=== PATIENT | female | born 1980 | race Caucasian/White ===

== ENCOUNTER 2017-01-10 02:10 | Emergency (ER) | payer OTHER ==
[~2017-01-10] VITALS: Ht 157.5 cm; Wt 78.6 kg
[~2017-01-10 02:10] MED LIST: FOLIC ACID 11 MG/TA1; LANTUS100 U/ML; MOTRIN 600600 MG/TAB PO; NATURAL IRON65 MG; PERCOCET 325 MG1 TA2 PO; PRENATABS FA1 TAB PO
[2017-01-10 02:14] VITALS: TEMP 96.4
[2017-01-10] MEDS ORDERED: QSYMIA 7.5 MG-41 CER PO (02:21)
[2017-01-10 02:46] LABS: BASO % 0.1 % (0.0-2.0); EOS # 0.1 (0.0-0.7); EOS % 0.8 % (0-4.0); GRAN # 10.3 (1.4-6.5); GRAN % 82.7 % (42.2-75.2); HEMATOCRIT 43.7 % (37.0-47.0); LYMPH # 1.4 (1.2-3.4); MEAN CELL VOLUME 85 fl (80.0-100.0); MEAN CORPUSCULAR HEMOGLOBIN 29 pg (27.0-31.0); MEAN CORPUSCULAR HGB CONC 34 g/dl (33.0-37.0); MEAN PLATELET VOLUME 8.9 fl (7.4-10.4); MONO # 0.6 (0.1-0.6); MONO % 5.1 % (1.7-9.3); PLATELET COUNT 309 K/mm3 (130-400); RED BLOOD COUNT 5.16 M/mm3 (4.10-5.30); REDCELL DISTRIBUTION WIDTH-CV 12.8 % (11.5-14.5); WHITE BLOOD COUNT 12.4 K/mm3 (4.8-10.8)
[2017-01-10 02:56] LABS: ADJUSTED CALCIUM 9.2 mg/dL (8.4-10.2); ALBUMIN 5.1 gm/dL (3.5-5.0); BILIRUBIN,TOTAL 1.1 mg/dL (0.0-1.0); CALCIUM 10.1 mg/dL (8.4-10.2); CREATININE, serum 0.75 mg/dL (0.52-1.25); POTASSIUM 3.4 mmol/L (3.4-5.0); TOTAL PROTEIN 8.1 gm/dL (6.4-8.2)
[2017-01-10] MEDS ORDERED: PHENERGAN 25 TA25 MG PO (03:26)
[2017-01-10 05:28] VITALS: BP 128/78; PULSE 78
== END 2017-01-10 05:29 | disposition home or self-care (01) ==
LOC: COL.ER 02:10
PROVIDERS: Emergency Medicine
DX: R11.2 Nausea with vomiting, unspecified (principal); R19.7 Diarrhea, unspecified; R10.13 Epigastric pain
CPT/HCPCS: J2405; J2550; J7030

== ENCOUNTER → 2019-06-04 | Outpatient (CLI) | payer OTHER ==
[~2019-06-04] VITALS: Ht 157.5 cm; Wt 86.2 kg
[~2019-06-04] MED LIST changes: +BELVIQ PO; +PHENERGAN 25 TA25 MG PO; +QSYMIA 7.5 MG-41 CER PO
[2019-06-04 10:05] VITALS: BP 110/70; PULSE 90
== END ==
LOC: LIGHT 09:47
DX: E66.9 Obesity, unspecified (principal); Z68.32 Body mass index [BMI] 32.0-32.9, adult; Z71.3 Dietary counseling and surveillance
CPT/HCPCS: G0463

== ENCOUNTER → 2019-06-26 | Outpatient (CLI) | payer OTHER ==
[~2019-06-26] VITALS: Ht 157.5 cm; Wt 86.4 kg
[2019-06-26 10:21] VITALS: BP 106/80; PULSE 107
== END ==
LOC: LIGHT 10:10
DX: E78.5 Hyperlipidemia, unspecified (principal); F32.9 Major depressive disorder, single episode, unspecified; J45.909 Unspecified asthma, uncomplicated; E66.9 Obesity, unspecified; Z68.34 Body mass index [BMI] 34.0-34.9, adult; Z71.3 Dietary counseling and surveillance
CPT/HCPCS: G0463

== ENCOUNTER → 2019-07-07 | Outpatient (CLI) | payer OTHER | LOC: LIGHT 14:58 | DX: E78.5 Hyperlipidemia, unspecified (principal); F32.9 Major depressive disorder, single episode, unspecified; J45.909 Unspecified asthma, uncomplicated; E66.9 Obesity, unspecified; Z68.34 Body mass index [BMI] 34.0-34.9, adult; Z71.3 Dietary counseling and surveillance ==

== ENCOUNTER → 2019-07-24 | Outpatient (CLI) | payer OTHER ==
[~2019-07-24] VITALS: Ht 157.5 cm; Wt 87.5 kg
[~2019-07-24] MED LIST changes: +QSYMIA 3.75 MG PO
[2019-07-24 13:04] VITALS: BP 124/80; PULSE 92
== END ==
LOC: LIGHT 12:55
DX: E78.5 Hyperlipidemia, unspecified (principal); F32.9 Major depressive disorder, single episode, unspecified; J45.909 Unspecified asthma, uncomplicated; E66.9 Obesity, unspecified; Z68.35 Body mass index [BMI] 35.0-35.9, adult; Z71.3 Dietary counseling and surveillance
CPT/HCPCS: G0463

== ENCOUNTER → 2019-08-06 | Outpatient (CLI) | payer OTHER | LOC: LIGHT 12:55 | DX: E78.5 Hyperlipidemia, unspecified (principal); F32.9 Major depressive disorder, single episode, unspecified; J45.909 Unspecified asthma, uncomplicated; E66.9 Obesity, unspecified; Z68.35 Body mass index [BMI] 35.0-35.9, adult; Z71.3 Dietary counseling and surveillance ==

== ENCOUNTER → 2020-03-11 | Outpatient (CLI) | payer OTHER ==
[~2020-03-11] VITALS: Ht 157.5 cm; Wt 86.6 kg
[~2020-03-11] MED LIST changes: +FASTIN30 MG PO; +QSYMIA 11.25 MG1 CER PO; -QSYMIA 3.75 MG PO; +TOPAMAX50 MG PO
[2020-03-11 13:34] VITALS: BP 120/80; PULSE 83
== END ==
LOC: LIGHT 01-06 11:41
DX: E66.8 Other obesity (principal); Z68.34 Body mass index [BMI] 34.0-34.9, adult; E78.5 Hyperlipidemia, unspecified
CPT/HCPCS: G0463

== ENCOUNTER → 2020-04-22 | Outpatient (CLI) | payer OTHER ==
[~2020-04-22] VITALS: Ht 157.5 cm; Wt 88.5 kg
[~2020-04-22] MED LIST changes: +SAXENDA6 MG/ML SQ
[2020-04-22 14:02] VITALS: BP 124/84; PULSE 99
== END ==
LOC: LIGHT 13:43
DX: E66.8 Other obesity (principal); Z68.35 Body mass index [BMI] 35.0-35.9, adult; E78.5 Hyperlipidemia, unspecified; M54.5 Low back pain
CPT/HCPCS: G0463

== ENCOUNTER → 2020-06-03 | Outpatient (CLI) | payer OTHER ==
[~2020-06-03] VITALS: Ht 157.5 cm; Wt 85.5 kg
[2020-06-03 11:40] VITALS: BP 120/84; PULSE 83
== END ==
LOC: LIGHT 11:26
DX: E66.8 Other obesity (principal); Z68.34 Body mass index [BMI] 34.0-34.9, adult; E78.5 Hyperlipidemia, unspecified
CPT/HCPCS: G0463

== ENCOUNTER → 2020-07-29 | Outpatient (CLI) | payer OTHER ==
[~2020-07-29] VITALS: Ht 157.5 cm; Wt 87.1 kg
[~2020-07-29] MED LIST changes: +DESYREL 100MG100 MG PO
[2020-07-29 10:34] VITALS: BP 116/80; PULSE 88
== END ==
LOC: LIGHT 07-22 08:29
DX: E66.8 Other obesity (principal); Z68.38 Body mass index [BMI] 38.0-38.9, adult; E78.5 Hyperlipidemia, unspecified; M54.5 Low back pain
CPT/HCPCS: G0463